=== PATIENT | male | born 1945 | race American Indian/Alaskan Native ===

== ENCOUNTER 2016-07-30 11:59 | Outpatient (CLI) | payer MEDICARE ==
[2016-07-30] MEDS ORDERED: PROVENTIL IH ONE (12:04)
--- NOTE | 2016-08-02 07:42 | Pulmonary Function Test ---
FVC 2.73 L of 52% of predicted, FEV1 2.33 L ____ ratio of 85%, MVV of 47%. Post-bronchodilator therapy ____ significant improvement noted. Total lung capacity is 68% ____ %. Diffusion capacity of 45%. INTERPRETATION: There is evidence of moderate restrictive ventilatory defect without any response to bronchodilator therapy. There is also evidence of significant loss of functioning alveolar unit. Clinical correlation is suggested. JOB# [id number] PAM/GABINO
== END 2016-07-30 12:00 | disposition home or self-care (01) ==
LOC: PF 11:59
PROVIDERS: ATTEND Internal Medicine
DX: R06.02 Shortness of breath (principal)
CPT/HCPCS: 94060; 94640; 94727; 94729

== ENCOUNTER 2016-09-14 12:35 | Outpatient (CLI) | payer MEDICARE ==
--- NOTE | 2016-09-14 13:41 | XRay Report ---
Flatplate of abdomen: History: Calculus of ureter. Findings: Stool in colon. No bowel distention or wall thickening. No radiopaque calculus or abnormal calcification. Impression: Essentially negative abdomen..
== END 2016-09-14 12:36 | disposition home or self-care (01) ==
LOC: XRAY 12:35
PROVIDERS: ATTEND Internal Medicine
DX: N20.2 Calculus of kidney with calculus of ureter (principal)
CPT/HCPCS: 74000

== ENCOUNTER 2016-10-22 09:21 | Outpatient (CLI) | payer MEDICARE ==
--- NOTE | 2016-10-22 10:55 | XRay Report ---
CHEST 2 VIEWS INDICATION: Shortness of breath. COMPARISON: None similar. FINDINGS: PA and lateral chest radiographs demonstrate normal cardiomediastinal silhouette. Clear well-expanded lungs. Aortic knob calcifications. Mild mid to lower thoracic spine degenerative spurring. CONCLUSION: No acute disease in the chest. Thank you for the opportunity to participate in this patient's care.
--- NOTE | 2016-10-22 11:16 | Nuclear Medicine Report ---
LUNG SCAN, VENTILATION AND PERFUSION: Followup pulmonary embolus. Inhalation of Xenon gas demonstrates a normal distribution of the activity throughout both lungs. The wash out phases show no focal retention of activity. After injection of Technetium 99m macroaggregated albumin gamma camera imaging of the lungs in multiple projections demonstrates normal pulmonary contours with a homogeneous distribution of activity. No focal areas of perfusion deficiency are identified. IMPRESSION: Normal study.
== END 2016-10-22 09:22 | disposition home or self-care (01) ==
LOC: NM 09:21
PROVIDERS: ATTEND Internal Medicine
DX: I26.90 Septic pulmonary embolism without acute cor pulmonale (principal); R06.02 Shortness of breath
CPT/HCPCS: 71020; 78582; A9540; A9558